=== PATIENT | male | born 1950 | race Caucasian/White ===

== ENCOUNTER 2021-06-27 02:58 | Emergency (ER) | payer OTHER, SELFPAY ==
[~2021-06-27] VITALS: Ht 167.6 cm; Wt 72.6 kg
--- NOTE | 2021-06-27 02:58 | NUR ---
Patient to ER bed H1 to gown for evaluation. Side rails up.
--- NOTE | 2021-06-27 03:00 | NUR ---
Pt brought by self, A&Ox4, pt presents to ER with foreign object /pen on penis, pt states he inserted pen for sexual purposes, no bleeding noted at this time, pain level 4/10, skin pink and warm, cap refill <3, VSS,respirations even and unlabored.
[2021-06-27 03:16] VITALS: BP_SYST 142
--- NOTE | 2021-06-27 03:25 | NUR ---
Dr Mccarty evaluating patient at bedside
--- NOTE | 2021-06-27 03:45 | NUR ---
Covid test and blood sent to the lab
--- NOTE | 2021-06-27 03:45 | NUR ---
Pt off the unit for CT
--- NOTE | 2021-06-27 04:05 | NUR ---
Pt returned from CT on stable condition
--- NOTE | 2021-06-27 04:21 | NUR ---
Lata ko in [facility] - 06/27/21 at [email or web address] Mccarty evaluating patient at bedside
--- NOTE | 2021-06-27 05:29 | NUR ---
Pt A&Ox4, VSS,respirations even and unlabored, cap refill <3.
--- NOTE | 2021-06-27 06:47 | NUR ---
Dr Small notified about pt's pain 09/12,
[2021-06-27 07:00] VITALS: BP_SYST 138
--- NOTE | 2021-06-27 07:21 | NUR ---
Lata ko in [facility] - 06/27/21 at 0721 by [email or web address] Report given to Deborah RASCON
== END 2021-06-27 07:00 | disposition short-term general hospital (02) ==
LOC: SED 02:58
DX: T19.0XXA Foreign body in urethra, initial encounter (principal); Z20.822 Contact with and (suspected) exposure to COVID-19; X58.XXXA Exposure to other specified factors, initial encounter; Y93.89 Activity, other specified; Y92.89 Other specified places as the place of occurrence of the external cause; Y99.8 Other external cause status
CPT/HCPCS: 36415; 76376; 99285

== ENCOUNTER 2021-07-05 12:23 | Emergency (ER) | payer OTHER, SELFPAY ==
[~2021-07-05] VITALS: Ht 167.6 cm; Wt 72.6 kg
[2021-07-05 12:25] VITALS: BP_SYST 122
--- NOTE | 2021-07-05 12:26 | NUR ---
Patient to ER bed 02 to gown for evaluation. Side rails up.
--- NOTE | 2021-07-05 13:09 | NUR ---
Patient to ED at this time bib emr. states this morning he went for a jog with his daughter and became sob with a quick "knife" like pain in left upper chest area. Patient states "I did have too much to drink last night". patient NSR on the monitor. EKG obtained at this time and given to
[2021-07-05 13:53] LABS: BILIRUBIN,URINE NEGATIVE (NEGATIVE); BLOOD, URINE NEGATIVE (NEGATIVE); CLARITY/URINE CLEAR (CLEAR); COLOR,URINE YELLOW (YELLOW); GLUCOSE,URINE NEGATIVE (NEGATIVE); KETONES,URINE NEGATIVE (NEGATIVE); LEUKOCYTE ESTERASE ,URINE NEGATIVE (NEGATIVE); NITRITE, URINE NEGATIVE (NEGATIVE); PROTEIN URINE NEGATIVE (NEGATIVE); UROBILINOGEN,URINE 0.2 (0.2-1.0)
[2021-07-05 15:52] LABS: BASOPHILS # (AUTO) 0.1 K/uL (0.0-0.2); BASOPHILS % (AUTO) 1.4 % (0.0-2.0); EOSINOPHILS % (AUTO) 0.2 % (0.0-4.0); HEMATOCRIT 36.5 % (36-54); HEMOGLOBIN 12.7 g/dL (14.0-18.0); LYMPHOCYTES # (AUTO) 1.4 K/uL (1.0-5.5); MEAN CORPUSCULAR HEMOGLOBIN 31 pg (27-31); MEAN CORPUSCULAR HGB CONC 35 % (32-36); MEAN CORPUSCULAR VOLUME 88 fL (79.0-98.0); MONOCYTES # (AUTO) 0.4 K/uL (0.0-1.0); MONOCYTES % (AUTO) 6.5 % (1.7-9.3); NEUTROPHILS # (AUTO) 4.9 K/uL (1.8-7.7); NEUTROPHILS % (AUTO) 71.9 % (40.0-70.0); PLATELET COUNT (AUTO) 270 K/uL (130-430); RED BLOOD CELL COUNT(AUTO) 4.13 MIL/uL (4.2-6.2); RED CELL DISTRIBUTION WIDTH 12.1 % (9.0-15.0); WHITE BLOOD COUNT (AUTO) 6.8 K/uL (4.8-10.8)
[2021-07-05 15:59] LABS: ANION GAP 13 (5-15); CALCIUM 8.5 mg/dL (8.4-11.0); CHLORIDE 102 mmol/L (98-107); CREATININE 0.86 mg/dL (0.55-1.30); GLUCOSE 74 mg/dL (70-99); POTASSIUM 3.8 mmol/L (3.5-5.1); SODIUM SERUM 138 mmol/L (136-145); UREA NITROGEN, BLOOD 15 mg/dL (8-21)
[2021-07-05 16:10] LABS: ALANINE AMINOTRANSFERASE 25 U/L (12-78); ALBUMIN 3.8 g/dL (3.4-4.8); ASPARTATE AMINOTRANSFERASE 22 U/L (10-37); TOTAL BILIRUBIN 0.8 mg/dL (0.0-1.0)
[2021-07-05 18:54] VITALS: BP_SYST 120
--- NOTE | 2021-07-05 18:57 | NUR ---
Patient given written and verbal discharge instructions and verbalizes understanding. ER MD discussed with patient the results and treatment provided. Patient in stable condition. ID arm band removed. IV catheter removed intact and dressing applied, no active bleeding. No prescription given. Patient educated on pain management and chest pain and to follow up with PMD. Pain Scale . Opportunity for questions provided and answered. Medication side effect fact sheet provided.
--- NOTE | 2021-07-05 19:08 | NUR ---
patient discharged in stable condition with daughter
== END 2021-07-05 18:54 | disposition home or self-care (01) ==
LOC: SED 12:23
DX: R07.89 Other chest pain (principal); R53.1 Weakness
CPT/HCPCS: 36415; 71045; 80053; 81003; 82962; 84484; 85025; 93005; 99285